=== PATIENT | male | born 1940 | race Caucasian/White ===

== ENCOUNTER → 2016-11-22 | Day surgery (SDC) | payer MEDICARE ==
[~2016-11-22] VITALS: Ht 185.4 cm; Wt 138.5 kg
[~2016-11-22] MED LIST: 0.9% Sodium Chloride 1,000 ML IV SCH; CALC600T12 PO; CHOL10008 PO; FENO130C6 PO; LOSA50TA37 PO; METF500T4 PO; SIMV20TA4 PO; Sodium Chloride LOK Flush 10 mL Syringe IV PRN; TAMS0.4C98 PO; fentaNYL-PF 50 mCg/mL 2 mL Inj IVPUSH PRN
[2016-11-22 11:41] VITALS: BP 138/89; PULSE 88; RESP 14; O2SAT 96
[2016-11-22 12:41] VITALS: BP 107/87; PULSE 78; O2SAT 95
[2016-11-22 12:50] VITALS: BP 110/69; PULSE 83; RESP 16; O2SAT 94
[2016-11-22 13:00] VITALS: BP 114/71; PULSE 87; RESP 20; O2SAT 94
--- NOTE | 2016-11-22 14:31 | ENDO ---
[address] [address] ENDOSCOPY PROCEDURE PATIENT: MEL SHARP : 1940 MR#: [id number] ADMIT: 11/22/2016 JOB ID: [id number] DATE: 11/22/2016 TYPE OF OPERATION: Colonoscopy with hot snare polypectomy. PREOPERATIVE DIAGNOSIS(ES): History of tubular adenoma polyps. POSTOPERATIVE DIAGNOSIS(ES): 1. A 8 mm sigmoid polyp removed by hot snare polypectomy. 2. Mild sigmoid diverticulosis. 3. Small internal hemorrhoids. ANESTHESIA: 1. Fentanyl 100 mcg. 2. Versed 5 mg IV administered. COMPLICATION: None. ESTIMATED BLOOD LOSS: Minimal. DESCRIPTION OF PROCEDURE: After the risks and benefits were explained to the patient, informed consent was obtained. After anesthesia administered, colonoscope was then inserted from the rectum to the cecum. Mucosa carefully examined. Prep of the patient was fair. After procedure was done, the scope withdrawn and procedure terminated. FINDINGS: 1. Upon inspection of the anus, no masses, hemorrhoids, ulcers, or fissures that were seen. Throughout the entire examination, there was an 8 mm sigmoid polyp, removed by hot snare polypectomy. 2. There were also small internal hemorrhoids. 3. There was also mild sigmoid diverticulosis. No other polyps or masses were seen. Retroflexion showed small internal hemorrhoids. IMPRESSIONS: 1. Mild sigmoid diverticulosis. 2. Small internal hemorrhoids. 3. An 8 mm sigmoid polyp removed by hot snare polypectomy. RECOMMENDATIONS: 1. Await pathology results. 2. Repeat colonoscopy five years for history of tubular adenomatous polyps. 3. High-fiber diet. 4. Followup in GI clinic as needed.
--- NOTE | 2016-11-24 16:00 | PATH ---
SURGICAL PATHOLOGY Attending Physician:Taz Buchanan MD CASE STATUS: Signed Out PATIENT NAME: MEL SHARP PID: [id number] : 1940 DATE COLLECTED:11/22/2016 22:20 SPECIMEN: Colon, Polyp CLINICAL HISTORY: PERSONAL HISTORY OF POLYPS 1). SIGMOID COLON POLYP X1 FINAL DIAGNOSIS: Sigmoid Colon, Polyp, Biopsy: Tubular adenoma; negative for high-grade dysplasia. ICD10: K63.5 GROSS DESCRIPTION: The specimen is received in one formalin filled container labeled with the patient's name, sublabeled "sigmoid colon polyp" and consists of a 0.6 x 0.6 x 0.5 CM portion of tissue which is entirely submitted in one cassette. 11/22/2016DE ICD-9 CODES: CPT CODES: 1: 92737 Electronically Signed Out Radha Fajardo MD [facility] [place] [address] Technical component performed at [facility], [facility] [address], [place], [address]
== END | disposition home or self-care (01) ==
LOC: END 00:31
PROVIDERS: ATTEND Internal Medicine Gastroenterology
DX: Z12.11 Encounter for screening for malignant neoplasm of colon (principal); D12.5 Benign neoplasm of sigmoid colon; K57.30 Diverticulosis of large intestine without perforation or abscess without bleeding; K64.8 Other hemorrhoids; I10 Essential (primary) hypertension; E11.9 Type 2 diabetes mellitus without complications; E78.5 Hyperlipidemia, unspecified; N40.0 Benign prostatic hyperplasia without lower urinary tract symptoms; Z85.46 Personal history of malignant neoplasm of prostate
CPT/HCPCS: 45385; G0500; J2250; J3010; J7030